=== PATIENT | female | born 1950 | race Caucasian/White ===

== ENCOUNTER 2017-01-20 10:12 | Outpatient (CLI) | payer OTHER ==
--- NOTE | 2017-01-20 12:56 | XRAY Report ---
FRONTAL PELVIS: 01/20/2017 CLINICAL INDICATION: Chronic pain. FINDINGS: Frontal view of the pelvis demonstrates moderate osteoarthritis of the hip joints and dege nerative changes of the sacroiliac joints. There is no evidence of pelvic fracture. No radiopaque f oreign body is seen in the soft tissues. IMPRESSION: OSTEOARTHRITIS. NO EVIDENCE OF PELVIC FRACTURE. JOB #: [id number] EXT JOB #:[id number]
--- NOTE | 2017-01-20 12:57 | XRAY Report ---
BILATERAL SACROILIAC JOINTS: 01/20/2017 CLINICAL INDICATION: Chronic pain. FINDINGS: AP and bilateral oblique views of the sacroiliac joints demonstrate mild degenerative joe ges. There is no evidence of fusion or erosion. The sacral ala are preserved. IMPRESSION: MILD DEGENERATIVE CHANGES. JOB #: [id number] EXT JOB #:[id number]
== END 2017-01-20 10:13 | disposition home or self-care (01) ==
LOC: DI.N 10:12
PROVIDERS: ATTEND Physician Assistant
DX: M16.0 Bilateral primary osteoarthritis of hip (principal); M47.898 Other spondylosis, sacral and sacrococcygeal region
CPT/HCPCS: 72170; 72202

== ENCOUNTER 2019-09-26 06:44 | Day surgery (SDC) | payer MEDICARE ==
[~2019-09-26 06:44] MED LIST: CYCLOPENTOLATE 1% OPHTH DROPS 2 ML ONE; KETOROLAC 0.45% OPHTH DROPS ONE; PHENYLEPHRINE 2.5% OPHTH 2 ML DROPS ONE; PROPARACAINE 0.5% OPHTH DROPS 15 ML ONE
[2019-09-26] MEDS ORDERED: MIDAZOLAM 2 MG/2 ML VIAL IVP ONE (06:45)
[2019-09-26] MEDS ORDERED: PHENYLEPHRINE 2.5% OPHTH 2 ML DROPS RIGHTEYE ONE (07:00)
[2019-09-26] MEDS ORDERED: CYCLOPENTOLATE 1% OPHTH DROPS 2 ML RIGHTEYE ONE (07:00)
[2019-09-26] MEDS ORDERED: KETOROLAC 0.45% OPHTH DROPS RIGHTEYE ONE (07:00)
[2019-09-26] MEDS ORDERED: PROPARACAINE 0.5% OPHTH DROPS 15 ML RIGHTEYE ONE ×2 (07:00→08:09)
[2019-09-26] MEDS ORDERED: LACTATED RINGERS 1,000 ML IV ONE (07:02)
--- NOTE | 2019-09-26 07:21 | ANESTHESIA ---
Pre-Anesthesia VS, & Labs - Diagnosis Right senile combined cataract - Procedure Right phaco with IOL implant Vital Signs: Temp Pulse Resp BP Pulse Ox 36.1 C L 84 16 154/84 H 96 09/26/19 07:02 09/26/19 07:02 09/26/19 07:02 09/26/19 07:02 09/26/19 07:02 Height 5 ft 4 in Weight (kg) 99 kg - NPO >8 hours - Is Patient ?: No - Lab Results Lab results reviewed: No Home Medications and Allergies Home Medications: Ambulatory Orders Aspirin 325 mg PO QID 09/26/19 Glipizide 5 mg PO BID 09/26/19 Lisinopril [Prinivil] 10 mg PO DAILY 09/26/19 Metformin HCl 500 mg PO BID 09/26/19 Aspirin 325 mg PO QID 09/26/19 Glipizide 5 mg PO BID 09/26/19 Lisinopril [Prinivil] 10 mg PO DAILY 09/26/19 Metformin HCl 500 mg PO BID 09/26/19 Allergies/Adverse Reactions: Allergies Allergy/AdvReac Type Severity Reaction Status Date / Time heparin Allergy Unknown Verified 09/26/19 07:21 latex Allergy Respiratory Verified 09/25/19 13:31 thimerosal Allergy Unknown Verified 09/26/19 07:04 Anes History & Medical History - Anesthetic History Anesthesia Complications: reports: No previous complications Family history of Anesthesia Complications: Denies Family history of Malignant Hyperthermia: Denies - Medical History Cardiovascular: reports: Hypertension, Other (Hx of pericarditis) Pulmonary: reports: None Gastrointestinal: reports: None Urinary: reports: None Neuro: reports: None Musculoskeletal: reports: Osteoarthritis Endocrine/Autoimmune: reports: Type 2 diabetes Blood Disorders: reports: None Skin: reports: None Smoking Status: Former smoker Psychosocial: reports: No issues indicated - Surgical History Cardiothoracic: Other Gynecologic: Tubal ligation Exam General: Alert, Oriented x3, Cooperative Dental: WNL Mouth Opening: Greater than 4 Fingerbreadths Neck Mobility: Normal Mallampati classification: I Thyromental Distance: greater than 6 cm Respiratory: Lungs clear Cardiovascular: Regular rate Plan Anesthesia Type: MAC Consent for Procedure(s) Verified and Reviewed: Yes Code Status: Attempt Resuscitation ASA classification: 3-Severe systemic disease Is this case an emergency?: No
[2019-09-26] MEDS ORDERED: timoloL maleate 0.5% OPHTH DROPS (10ML) ONE (07:40)
[2019-09-26] MEDS ORDERED: TRIAMCIN/MOXIFLOX OPHTHALMIC 0.6 ML VIAL IO ONE ×2 (07:40→08:10)
[2019-09-26] MEDS ORDERED: BRIMONIDINE 0.2% OPHTH DROPS 5 ML ONE (07:40)
[2019-09-26] MEDS ORDERED: BSS/LIDOCAINE/EPINEPHRINE 1 ML SYRINGE ONE (07:41)
[2019-09-26] MEDS ORDERED: VANCOMYCIN OPHTHALMI 8MG/0.8ML 8 MG/0.8 ML SYRINGE IO ONE ×2 (07:41→08:10)
[2019-09-26] MEDS ORDERED: BRIMONIDINE 0.2% OPHTH DROPS 5 ML OPTH ONE (08:08)
[2019-09-26] MEDS ORDERED: CHONDR SULF/HYALURONATE SYRINGE IO ONE (08:09)
[2019-09-26] MEDS ORDERED: EPINEPHrine 1 MG/ML AMP IVP ONE (08:09)
[2019-09-26] MEDS ORDERED: BSS/LIDOCAINE/EPINEPHRINE 1 ML SYRINGE IO ONE (08:09)
[2019-09-26] MEDS ORDERED: TIMOLOL 0.5% OPHTH DROPS OPTH ONE (08:09)
--- NOTE | 2019-09-26 08:45 | OPERATIVE REPORT ---
DATE OF SERVICE: 09/26/2019 Physician: Denis Thomas MD PREOPERATIVE DIAGNOSIS: Visually significant cataract, right eye. This was her first cataract surge ry. POSTOPERATIVE DIAGNOSIS: Visually significant cataract, right eye. This was her first cataract surg nika. DESCRIPTION OF PROCEDURE: Phacoemulsification with posterior chamber intraocular lens implant, right eye. SURGEON: Denis Thomas MD ANESTHESIA: Monitored anesthesia care. COMPLICATIONS: None. OPERATIVE INDICATIONS: This is a 68-year-old woman with progressive vision loss in the right eye due to 2+ nuclear sclerotic and 3+ cortical cataract. Best corrected visual acuity was 20/50, with glar e to 20/125 in the right eye. Indications for surgery are overall decrease in vision, difficulty see ing words on a computer screen, difficulty reading; difficulty seeing words, closed caption or game s cores on TV; difficulty seeing street signs, difficulty driving in low light or at night, difficulty driving at night because of headlights from other vehicles, and difficulty with glare or bright light s in any situation. She was consented at length concerning risks and benefits of cataract surgery, a fter which she expressed a desire to proceed with surgery. OPERATIVE PROCEDURE: Patient was taken into OR #3 and placed under monitored anesthesia care. A rafi gical timeout was conducted confirming correct patient, correct procedure, and correct surgical site. She was given topical anesthesia, and then prepped and draped in the usual sterile fashion. The ey e was entered at the 12 and 9 o'clock positions. There was some temporal corneal neovascularization/ pannus through which the phaco wound went through, with a minor amount of bleeding. Intracameral Mirtha garcaine was injected into the anterior chamber, followed by Viscoat. There did seem to be a mild am ount of phacodonesis and, when trying to pop the needle through the anterior capsule, it seemed like the lens wanted to move posteriorly. However, a continuous-tear curvilinear capsulorrhexis was perfo rmed without trouble. The nucleus was hydrodissected and phacoemulsified. The cortex was evacuated using automated infusion and aspiration. Provisc was injected in the capsular bag, and an 11.0 diopt er intraocular lens was inserted into the bag. Infusion and aspiration was used to evacuate the visc oelastic materials. The eye was inflated to physiologic pressure using a balanced salt solution, and found to be watertight. Approximately 0.25 mL of a mixture of triamcinolone and moxifloxacin was in jected transsclerally into the vitreous in the inferotemporal quadrant. An additional 0.55 mL of a m ixture of triamcinolone, moxifloxacin and vancomycin was injected subconjunctivally in the superior q uadrant for infection and inflammation prophylaxis. Wound integrity was checked with Weck-Katie sponge s. Patient was taken from the operating room in good condition and given postoperative instructions. TD: 09/26/2019 08:26
[2019-09-26 08:46] VITALS: BP 144/62
== END 2019-09-26 06:45 | disposition home or self-care (01) ==
LOC: SDS 06:44
PROVIDERS: ATTEND Ophthalmology
PROC: 08RJ3JZ Replacement of Right Lens with Synthetic Substitute, Percutaneous Approach (ICD-10-PCS; principal; 2019-09-26 08:00)
DX: E11.36 Type 2 diabetes mellitus with diabetic cataract (principal); H25.811 Combined forms of age-related cataract, right eye; Z79.84 Long term (current) use of oral hypoglycemic drugs; I10 Essential (primary) hypertension; Z87.891 Personal history of nicotine dependence
CPT/HCPCS: 66984; A9270; J3490; J7120; V2632

== ENCOUNTER 2020-01-14 09:52 | Outpatient (CLI) | payer MEDICARE | END 2020-01-14 09:53 | disposition home or self-care (01) | LOC: LAB 09:52 | PROVIDERS: ATTEND Ophthalmology | DX: Z01.812 Encounter for preprocedural laboratory examination (principal); H25.812 Combined forms of age-related cataract, left eye; Z11.59 Encounter for screening for other viral diseases | CPT/HCPCS: 81599 ==

== ENCOUNTER 2020-01-16 06:44 | Day surgery (SDC) | payer MEDICARE ==
[2020-01-16] MEDS ORDERED: MIDAZOLAM 2 MG/2 ML VIAL IVP ONE (06:45)
[2020-01-16] MEDS ORDERED: LACTATED RINGERS 500 ML IV ONE (06:59)
[2020-01-16] MEDS ORDERED: PROPARACAINE 0.5% OPHTH DROPS 15 ML LEFTEYE ONE ×2 (07:10→08:20)
[2020-01-16] MEDS ORDERED: KETOROLAC 0.45% OPHTH DROPS LEFTEYE ONE (07:10)
[2020-01-16] MEDS ORDERED: PHENYLEPHRINE 2.5% OPHTH 2 ML DROPS LEFTEYE ONE (07:10)
[2020-01-16] MEDS ORDERED: CYCLOPENTOLATE 1% OPHTH DROPS 2 ML LEFTEYE ONE (07:10)
[2020-01-16] MEDS ORDERED: KETOROLAC 0.45% OPHTH DROPS ONE (07:17)
[2020-01-16] MEDS ORDERED: PROPARACAINE 0.5% OPHTH DROPS 15 ML ONE (07:17)
[2020-01-16] MEDS ORDERED: CYCLOPENTOLATE 1% OPHTH DROPS 2 ML ONE (07:17)
[2020-01-16] MEDS ORDERED: PHENYLEPHRINE 2.5% OPHTH 2 ML DROPS ONE (07:17)
--- NOTE | 2020-01-16 07:36 | ANESTHESIA ---
Pre-Anesthesia VS, & Labs - Diagnosis L senile combined cataract, R astigmatism - Procedure L laser assist cataract exrtraction, R laser correction astigmatism Vital Signs: Temp Pulse Resp BP Pulse Ox 36.2 C L 85 16 147/103 H 99 01/16/20 07:11 01/16/20 07:11 01/16/20 07:11 01/16/20 07:11 01/16/20 07:11 Height 5 ft 4 in Weight (kg) 98.4 kg - NPO >8 hours - Is Patient ?: No - Lab Results Current Lab Results: Laboratory Tests 01/16/20 07:16: POC Whole Bld Glucose 208 H Home Medications and Allergies Home Medications: Ambulatory Orders Loratadine [Claritin] 10 mg PO DAILY 01/15/20 Aspirin 325 mg PO QID 09/26/19 Glipizide 5 mg PO BID 09/26/19 Lisinopril [Prinivil] 10 mg PO DAILY 09/26/19 Metformin HCl 500 mg PO BID 09/26/19 Loratadine [Claritin] 10 mg PO DAILY 01/15/20 Allergies/Adverse Reactions: Allergies Allergy/AdvReac Type Severity Reaction Status Date / Time heparin Allergy Unknown Verified 09/26/19 07:21 latex Allergy Respiratory Verified 09/25/19 13:31 thimerosal Allergy Unknown Verified 09/26/19 07:04 Anes History & Medical History - Anesthetic History Anesthesia Complications: reports: No previous complications Family history of Anesthesia Complications: Denies Family history of Malignant Hyperthermia: Denies - Medical History Cardiovascular: reports: Hypertension, Other Pulmonary: reports: None Gastrointestinal: reports: None Urinary: reports: None Neuro: reports: None Musculoskeletal: reports: Osteoarthritis Endocrine/Autoimmune: reports: Type 2 diabetes Blood Disorders: reports: None Skin: reports: None Smoking Status: Former smoker - Surgical History Eyes Ears Nose Throat (EENT): Cataracts Cardiothoracic: Other Gynecologic: Tubal ligation Exam General: Alert, Oriented x3, Cooperative Dental: WNL Mouth Opening: Greater than 4 Fingerbreadths Neck Mobility: Normal Mallampati classification: II Thyromental Distance: greater than 6 cm Respiratory: Lungs clear, Normal breath sounds, No respiratory distress Cardiovascular: Regular rate Neurological: Normal speech Mental/Cognitive Status: Alert/Oriented X3, Normal for patient Cognitive Status: Within normal limits Plan Anesthesia Type: MAC Consent for Procedure(s) Verified and Reviewed: Yes Code Status: Attempt Resuscitation ASA classification: 2-Mild systemic disease Is this case an emergency?: No
[2020-01-16] MEDS ORDERED: EPINEPHrine 1 MG/ML AMP IR ONE (08:20)
[2020-01-16] MEDS ORDERED: VANCOMYCIN OPHTHALMI 8MG/0.8ML 8 MG/0.8 ML SYRINGE IO ONE (08:20)
[2020-01-16] MEDS ORDERED: BSS/LIDOCAINE/EPINEPHRINE 1 ML SYRINGE IO ONE (08:20)
[2020-01-16] MEDS ORDERED: CHONDR SULF/HYALURONATE SYRINGE IO ONE (08:20)
[2020-01-16] MEDS ORDERED: TRIAMCIN/MOXIFLOX OPHTHALMIC 0.6 ML VIAL IO ONE ×2 (08:20→15:03)
[2020-01-16] MEDS ORDERED: BRIMONIDINE 0.2% OPHTH DROPS 5 ML OPTH ONE (08:20)
[2020-01-16 09:15] VITALS: BP 142/77
--- NOTE | 2020-01-16 11:32 | OPERATIVE REPORT ---
DATE OF SERVICE: 01/16/2020 Physician: Denis Thomas MD PREOPERATIVE DIAGNOSES 1. Visually significant cataract, left eye. Cataract surgery was performed on the right eye on 09/26/2019. 2. Also, astigmatism in the right eye, residual from the first cataract surgery, was relieved today using laser assisted arcuate keratotomy. POSTOPERATIVE DIAGNOSES 1. Visually significant cataract, left eye. Cataract surgery was performed on the right eye on of 2019. 2. Also astigmatism in the right eye, residual from the first cataract surgery, was relieved today using laser assisted arcuate keratotomy. OPERATIVE PROCEDURE: Phacoemulsification with posterior chamber intraocular lens implant, left eye with laser assist and laser produced arcuate keratotomies on the right eye to relieve astigmatism. SURGEON: Denis Thomas MD ANESTHESIA: Monitored anesthesia care. COMPLICATIONS: None. OPERATIVE INDICATIONS: This is a 69-year-old woman with progressive vision loss in the left eye due to 2+ nuclear sclerotic and 2-3+ cortical cataract. Best corrected visual acuity was 20/25, with glare to 20/100 in the left eye. Indications for surgery are overall decrease in vision, difficulty seeing words on a computer screen, difficulty reading, difficulty seeing words, closed caption or game scores on TV, difficulty seeing street signs, difficulty driving in low light or at night, difficulty driving at night because of headlights from other vehicles, and difficulty with glare or bright lights in any situation. She was consented at length concerning risks and benefits of cataract surgery, after which she expressed a desire to proceed with surgery. OPERATIVE PROCEDURE: Patient was taken to OR #3 and placed under monitored anesthesia care. Surgical timeout was conducted confirming correct patient, correct procedure, and correct surgical site. She was placed under the LenSx laser and her right eye was docked to the laser interface. The laser performed 2 arcuate keratotomy incisions on the right eye. The laser was then undocked from the right eye and redocked to the left eye. The laser on the left eye performed the capsulotomy, lens softening, phaco wounds and arcuate keratotomy incisions. She was then moved to the operating microscope, given topical anesthesia, and prepped and draped in the usual sterile fashion. The left eye was entered at the 6 and 3 o'clock positions. Intracameral Shugarcaine was injected into the anterior chamber, followed by Viscoat. The capsulorrhexis flap created by the LenSx laser was removed from the anterior chamber. The nucleus was hydrodissected and phacoemulsified. The cortex was evacuated using automated infusion and aspiration. Provisc was injected in the capsular bag, and a 9.5 diopter intraocular lens inserted in the bag. Infusion and aspiration was used to evacuate the viscoelastic materials. The eye was inflated to physiologic pressure using balanced salt solution and found to be watertight. Approximately 0.25 mL of a mixture of triamcinolone and moxifloxacin was injected trans sclerally into the vitreous in the inferotemporal quadrant. An additional 0.55 mL of a mixture of triamcinolone, moxifloxacin and vancomycin was injected subconjunctivally in the superior quadrant for infection and inflammation prophylaxis. Wound integrity was checked with Weck-Katie sponges. Patient was taken from the Operating Room in good condition and given postoperative instructions. TD: 01/16/2020 09:40 ALEISHA
[2020-01-16] MEDS ORDERED: timoloL maleate 0.5% OPHTH DROPS (10ML) ONE (15:03)
[2020-01-16] MEDS ORDERED: BRIMONIDINE 0.2% OPHTH DROPS 5 ML ONE (15:03)
[2020-01-16] MEDS ORDERED: BSS/LIDOCAINE/EPINEPHRINE 1 ML SYRINGE ONE (15:03)
[2020-01-16] MEDS ORDERED: EPINEPHrine 1 MG/ML AMP ONE (15:03)
== END 2020-01-16 06:45 | disposition home or self-care (01) ==
LOC: SDS 06:44
PROVIDERS: ATTEND Ophthalmology
DX: E11.36 Type 2 diabetes mellitus with diabetic cataract (principal); H25.812 Combined forms of age-related cataract, left eye; Z79.84 Long term (current) use of oral hypoglycemic drugs; H52.201 Unspecified astigmatism, right eye; I10 Essential (primary) hypertension; Z98.41 Cataract extraction status, right eye
CPT/HCPCS: 65772; 66984; A9270; J3490